=== PATIENT | female | born 1930 | race Caucasian/White ===

== ENCOUNTER → 2020-12-18 | Outpatient (CLI) | payer MEDICARE, OTHER ==
--- NOTE | 2020-12-18 10:31 | Diagnostic Imaging Report ---
INDICATION: Cardiac pacemaker, chest pain. COMPARISON: None. FINDINGS: Frontal and lateral views of the chest demonstrate chronic interstitial changes throughout both lungs. The heart is normal. There is no pneumothorax, effusion, or focal infiltrate. The pacemaker is in good position. The osseous structures are age-appropriate. IMPRESSION: No acute cardiopulmonary findings. Dictated by: Dictated on workstation # [id number]
== END ==
LOC: RAD FS 10:16
PROVIDERS: ATTEND Emergency Medicine
DX: R07.9 Chest pain, unspecified (principal)
CPT/HCPCS: 71046